=== PATIENT | male | born 1980 | race Hispanic/Latino ===

== ENCOUNTER 2017-02-26 22:07 | Emergency (ER) | payer OTHER ==
[~2017-02-26 22:07] MED LIST: ALPR0.5T PO; ALPR2TAB PO; DULO30CA PO; GABA800T2 PO; MORP-32 PO; ROPI0.5T2 PO
[2017-02-26 22:32] VITALS: BP 156/64; PULSE 98; RESP 18; O2SAT 99
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
[2017-02-27 00:05] VITALS: BP 175/88; PULSE 98; RESP 18; O2SAT 98
== END 2017-02-26 23:55 ==
LOC: SED 22:07
DX: F10.120 Alcohol abuse with intoxication, uncomplicated (principal); R45.1 Restlessness and agitation; Z02.89 Encounter for other administrative examinations; F43.10 Post-traumatic stress disorder, unspecified; Z87.891 Personal history of nicotine dependence